=== PATIENT | female | born 1990 | race Caucasian/White ===

== ENCOUNTER 2016-06-14 20:59 | Emergency (ER) | payer MEDICAID ==
[~2016-06-14] VITALS: Ht 165.1 cm; Wt 65.9 kg
[2016-06-14 21:02] VITALS: BP 125/62; PULSE 94; TEMP 98.6
[2016-06-14] MEDS ORDERED: MULTI VITAMINS1 TAB PO (21:05)
[2016-06-14] MEDS ORDERED: YAZ 28 3 MG-0.01 TAB PO (21:05)
[2016-06-14] MEDS ORDERED: ZITHROMAX 250M250 MG PO (21:51)
== END 2016-06-14 22:00 | disposition home or self-care (01) ==
LOC: COL.ER 20:59
DX: J02.9 Acute pharyngitis, unspecified (principal)

== ENCOUNTER 2016-07-07 10:55 | Emergency (ER) | payer MEDICAID ==
[~2016-07-07] VITALS: Ht 165.1 cm; Wt 66.8 kg
[~2016-07-07 10:55] MED LIST: MULTI VITAMINS1 TAB PO; YAZ 28 3 MG-0.01 TAB PO; ZITHROMAX 250M250 MG PO
[2016-07-07 10:57] VITALS: TEMP 98.2
[2016-07-07 11:42] LABS: BASO # 0.1 (0.0-0.2); BASO % 0.9 % (0.0-2.0); EOS # 0.3 (0.0-0.7); EOS % 2.8 % (0-4.0); GRAN % 61.7 % (42.2-75.2); HEMATOCRIT 41.8 % (37.0-47.0); HEMOGLOBIN 14.2 g/dl (12.5-16.0); LYMPH # 3.1 (1.2-3.4); LYMPH % 27.1 % (20.0-51.0); MEAN CELL VOLUME 90 fl (80.0-100.0); MEAN CORPUSCULAR HEMOGLOBIN 31 pg (27.0-31.0); MEAN CORPUSCULAR HGB CONC 34 g/dl (33.0-37.0); MEAN PLATELET VOLUME 9.6 fl (7.4-10.4); MONO # 0.8 (0.1-0.6); MONO % 7.1 % (1.7-9.3); PLATELET COUNT 321 K/mm3 (130-400); RED BLOOD COUNT 4.63 M/mm3 (4.10-5.30); REDCELL DISTRIBUTION WIDTH-CV 11.6 % (11.5-14.5); WHITE BLOOD COUNT 11.3 K/mm3 (4.8-10.8)
[2016-07-07 11:56] LABS: ADJUSTED CALCIUM 8.8 mg/dL (8.4-10.2); ALBUMIN 4.4 gm/dL (3.5-5.0); BILIRUBIN,TOTAL 0.7 mg/dL (0.0-1.0); C-REACTIVE PROTEIN 0.8 mg/dL (0.0-0.9); CALCIUM 9.1 mg/dL (8.4-10.2); CREATININE, serum 0.73 mg/dL (0.52-1.25); POTASSIUM 4.1 mmol/L (3.4-5.0)
[2016-07-07 12:26] LABS: PH 5 (5-8); URINE APPEARANCE Clear; URINE BILIRUBIN Negative (NEGATIVE); URINE BLOOD 1+ (NEGATIVE); URINE COLOR Yellow; URINE GLUCOSE Negative (NEGATIVE); URINE KETONE Negative (NEGATIVE); URINE UROBILINOGEN Negative (NEGATIVE)
[2016-07-07 13:02] LABS: URINE RBC 0-2 /hpf
[2016-07-07] MEDS ORDERED: PROTONIX 40MG T40 MG PO (13:13)
[2016-07-07] MEDS ORDERED: ZOFRAN 4MG T4 MG/TAB PO (13:13)
[2016-07-07 13:15] VITALS: BP 124/62; PULSE 72
== END 2016-07-07 13:21 | disposition home or self-care (01) ==
LOC: COL.ER 10:55
PROVIDERS: Emergency Medicine
DX: K29.70 Gastritis, unspecified, without bleeding (principal); R10.13 Epigastric pain; R11.0 Nausea
CPT/HCPCS: J1170; J2405; J7030; Q9967

== ENCOUNTER 2016-07-18 13:06 | Emergency (ER) | payer MEDICAID ==
[~2016-07-18] VITALS: Ht 165.1 cm; Wt 65.9 kg
[~2016-07-18 13:06] MED LIST changes: +PROTONIX 40MG T40 MG PO; +ZOFRAN 4MG T4 MG/TAB PO
[2016-07-18 13:11] VITALS: TEMP 98.4
[2016-07-18 14:13] LABS: BASO # 0.1 (0.0-0.2); BASO % 0.7 % (0.0-2.0); EOS # 0.2 (0.0-0.7); EOS % 1.5 % (0-4.0); GRAN # 9.3 (1.4-6.5); GRAN % 74.8 % (42.2-75.2); LYMPH # 2.1 (1.2-3.4); LYMPH % 16.6 % (20.0-51.0); MEAN CELL VOLUME 90 fl (80.0-100.0); MEAN CORPUSCULAR HGB CONC 34 g/dl (33.0-37.0); MEAN PLATELET VOLUME 9.6 fl (7.4-10.4); MONO # 0.7 (0.1-0.6); MONO % 5.9 % (1.7-9.3); PLATELET COUNT 230 K/mm3 (130-400); RED BLOOD COUNT 3.85 M/mm3 (4.10-5.30); REDCELL DISTRIBUTION WIDTH-CV 11.8 % (11.5-14.5); WHITE BLOOD COUNT 12.4 K/mm3 (4.8-10.8)
[2016-07-18 14:14] LABS: HEMATOCRIT 34.7 % (37.0-47.0); HEMOGLOBIN 11.7 g/dl (12.5-16.0); MEAN CORPUSCULAR HEMOGLOBIN 30 pg (27.0-31.0)
[2016-07-18 14:23] LABS: ADJUSTED CALCIUM 8.7 mg/dL (8.4-10.2); ALBUMIN 3.7 gm/dL (3.5-5.0); BILIRUBIN,TOTAL 0.5 mg/dL (0.0-1.0); CALCIUM 8.5 mg/dL (8.4-10.2); CREATININE, serum 0.63 mg/dL (0.52-1.25); POTASSIUM 3.6 mmol/L (3.4-5.0); TOTAL PROTEIN 6.7 gm/dL (6.4-8.2)
[2016-07-18 15:27] LABS: PH 5 (5-8); SQUAMOUS EPITHELIAL 0-2 /hpf; URINE APPEARANCE Clear; URINE BACTERIA Rare /hpf; URINE BILIRUBIN Negative (NEGATIVE); URINE BLOOD 1+ (NEGATIVE); URINE COLOR Straw; URINE GLUCOSE Negative (NEGATIVE); URINE KETONE Negative (NEGATIVE); URINE RBC None Seen /hpf; URINE UROBILINOGEN Negative (NEGATIVE); URINE WBC 0-2 /hpf
[2016-07-18] MEDS ORDERED: ZOFRAN ODT4 MG PO (15:46)
[2016-07-18] MEDS ORDERED: NORCO 325 MG-51 TAB PO (15:46)
[2016-07-18 16:09] VITALS: BP 114/85; PULSE 90
[2016-07-19] MEDS ORDERED: BIRTH CONTROL PO (11:17)
== END 2016-07-18 16:10 | disposition home or self-care (01) ==
LOC: COL.ER 13:06
PROVIDERS: Emergency Medicine
DX: R11.10 Vomiting, unspecified (principal); R19.7 Diarrhea, unspecified; Z98.890 Other specified postprocedural states
CPT/HCPCS: J1170; J2405; J7030

== ENCOUNTER 2016-07-19 10:56 | Day surgery (SDC) | payer MEDICAID ==
[~2016-07-19] VITALS: Ht 165.1 cm; Wt 67.9 kg
[~2016-07-19 10:56] MED LIST changes: +NORCO 325 MG-51 TAB PO; +ZOFRAN ODT4 MG PO
[2016-07-19 11:17] VITALS: BP 116/75; PULSE 67; TEMP 98.2
[2016-07-19] MEDS ORDERED: BIRTH CONTROL PO (11:17)
[2016-07-19 13:00] VITALS: BP 109/62; PULSE 67; TEMP 98.5
[2016-07-19 13:15] VITALS: BP 109/62; PULSE 75
[2016-07-19 13:30] VITALS: BP 11/65; PULSE 78
[2016-07-19 15:15] VITALS: BP 89/50; PULSE 99
== END 2016-07-19 13:45 | disposition home or self-care (01) ==
LOC: SDCO 10:56
DX: K92.0 Hematemesis (principal); K30 Functional dyspepsia; R11.2 Nausea with vomiting, unspecified; R93.3 Abnormal findings on diagnostic imaging of other parts of digestive tract
CPT/HCPCS: J2250; J3010; J7030

== ENCOUNTER → 2016-07-28 | Outpatient (CLI) | payer MEDICAID ==
[~2016-07-28] MED LIST changes: +BIRTH CONTROL PO
== END ==
LOC: COL.RAD 12:45
DX: R11.2 Nausea with vomiting, unspecified (principal)